=== PATIENT | male | born 1990 | race Caucasian/White ===

== ENCOUNTER 2018-12-20 17:13 | Emergency (ER) | payer SELFPAY ==
[~2018-12-20] VITALS: Ht 182.9 cm; Wt 79.4 kg
[2018-12-20 17:33] VITALS: BP 140/86
[2018-12-20] MEDS ORDERED: CLINDAMYCIN 600 MG/4 ML VL IM ONE (19:30)
== END 2018-12-20 20:06 | disposition home or self-care (01) ==
LOC: ER 17:13
DX: L02.01 Cutaneous abscess of face (principal); R51 Headache; Z88.0 Allergy status to penicillin
CPT/HCPCS: 96372